=== PATIENT | male | born 1985 | race Caucasian/White ===

== ENCOUNTER 2020-02-21 01:41 | Emergency (ER) | payer SELFPAY ==
[~2020-02-21] VITALS: Ht 177.8 cm; Wt 90.7 kg
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
--- NOTE | 2020-02-21 02:07 | NUR ---
BROUGHT TO CT
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
[2020-02-21 05:21] VITALS: BP 135/76
== END 2020-02-21 03:50 | disposition home or self-care (01) ==
LOC: ER 01:46
DX: S40.811A Abrasion of right upper arm, initial encounter (principal); S09.90XA Unspecified injury of head, initial encounter; R04.0 Epistaxis; Y08.89XA Assault by other specified means, initial encounter; Y93.89 Activity, other specified; Y92.89 Other specified places as the place of occurrence of the external cause; Y99.8 Other external cause status
CPT/HCPCS: 70450; 70480; 99285; A6403

== ENCOUNTER 2021-08-11 04:22 | Emergency (ER) | payer SELFPAY ==
[~2021-08-11] VITALS: Ht 180.3 cm; Wt 81.6 kg
[2021-08-11 05:32] VITALS: BP 118/68
[2021-08-11] MEDS ORDERED: DOXY100C2 PO (05:59)
[2021-08-11] MEDS ORDERED: DOXYCYCLINE HYCLATE (100 MG) 100 MG TABLET ONE (06:04)
[2021-08-11] MEDS ORDERED: CEFTRIAXONE 500 MG VIAL ONE (06:04)
[2021-08-11] MEDS ORDERED: LIDOCAINE /MPF 1% VIAL 5 ML VIAL ONE (06:04)
[2021-08-11] MEDS: DOXYCYCLINE HYCLATE (100 MG) 100 MG TABLET PO ONE (06:16)
[2021-08-11] MEDS: CEFTRIAXONE 500 MG VIAL IM ONE (06:16)
--- NOTE | 2021-08-11 08:00 | NUR ---
RECEIVED THE PATIENT IN ER BED #11. ALERT AND ORIENTED X4. DENIES PAIN. IN ROOM AIR AND DENIES SOB. WILL CONTINUE TO MONITOR THE PATIENT.
--- NOTE | 2021-08-11 09:48 | NUR ---
Patient discharged to home in stable condition. Written and verbal after care instructions given. Patient verbalizes understanding of instruction.
--- NOTE | 2021-08-11 09:49 | NUR ---
THE PATIENT DENIED BEING HOMELESS
== END 2021-08-11 09:50 | disposition home or self-care (01) ==
LOC: ER 04:22
DX: A64 Unspecified sexually transmitted disease (principal)
CPT/HCPCS: 87491; 87591; 96372; 99283; J0696; J3490

== ENCOUNTER 2024-12-14 13:51 | Emergency (ER) | payer MEDICAID ==
[~2024-12-14] VITALS: Ht 177.8 cm; Wt 81.6 kg
[~2024-12-14 13:51] MED LIST: DOXY100C2 PO
[2024-12-14 14:07] VITALS: BP 123/72; TEMP 98.3; O2SAT 100
[2024-12-14] MEDS ORDERED: DOXY100C2 PO (14:23)
[2024-12-14] MEDS: CEFTRIAXONE 500 MG VIAL IM ONE (14:30)
[2024-12-14] MEDS ORDERED: CEFTRIAXONE 500 MG VIAL ONE (14:57)
[2024-12-15 18:02] LABS: HIV-1 p24 ANTIGEN NON REACTIVE (NONREACTIVE); HIV-1/2 ANTIBODY NON REACTIVE (NONREACTIVE)
[2024-12-18 05:10] LABS: RAPID PLASMA REAGIN QUAL. Non Reactive (Non Reactive)
== END 2024-12-14 15:10 | disposition home or self-care (01) ==
LOC: ER 14:14
DX: R30.0 Dysuria (principal); Z11.3 Encounter for screening for infections with a predominantly sexual mode of transmission; Z60.2 Problems related to living alone; Z79.899 Other long term (current) drug therapy
CPT/HCPCS: 99283; 96372; 87806; J0696; 36415; 86592; 86593